=== PATIENT | female | born 1985 | race Caucasian/White ===

== ENCOUNTER 2017-12-16 11:02 | Emergency (ER) | payer OTHER ==
[~2017-12-16] VITALS: Ht 165.1 cm; Wt 81.8 kg
[~2017-12-16 11:02] MED LIST: IBUP1TAB7 PO; LISI-515 PO; NORG0.253 PO; PRAV10TA PO
[2017-12-16 11:03] VITALS: BP 132/64; PULSE 89; RESP 16; TEMP 99.1; O2SAT 97
--- NOTE | 2017-12-16 12:19 | PD ---
HPI Chief Complaint: Abdominal Pain Time Seen by Provider: 12:10 Travel History International Travel<30 days: No Contact w/Intl Traveler<30days: No Traveled to known affect area: No History of Present Illness HPI patient c/o 5 days of LLQ area pain, 04/19, nonradiating, becoming more and more constant where as before it was intermittent. patient went to urgent care which found her to have some hematuria and sent her here for further evaluation. patient denies any alleviating/aggravating factors.....denies any assoc factors such as fever,nausea,vomiting,diarrhea, cp/back pain/ PFSH Past Medical History Arthritis: Yes (JUVENILE RA ) High Cholesterol: Yes Hypertension: Yes Musculoskeletal: Yes (SCHOLIOSIS) Tetanus Vaccination: Unknown ?: Not LMP: 12/10/2017 : 3 Para: 0 : 2 Past Surgical History Section: Yes Other Surgery: Yes (c-sections) Social History Alcohol Use: No Tobacco Use: No Substance Use: No Allergies-Medications (Allergen,Severity, Reaction): Coded Allergies: cefaclor (Verified Allergy, Severe, 12/16/17) Reported Meds & Prescriptions Reported Meds & Active Scripts Active Pravastatin 10 Mg Tab 10 Mg PO DAILY Estarylla (Norgestimate-Ethinyl Estradiol) 0.25-35 Mg-Mcg Tab 1 Tab PO DAILY Lisinopril 20 Mg Tab 20 Mg PO DAILY Review of Systems General / Constitutional: No: Fever Eyes: No: Visual changes HENT: No: Headaches Cardiovascular: No: Chest Pain or Discomfort Respiratory: No: Shortness of Breath Gastrointestinal: No: Abdominal Pain Genitourinary: Positive: Flank Pain Musculoskeletal: No: Pain Skin: No Rash Neurologic: No: Weakness Psychiatric: No: Depression Endocrine: No: Polydipsia Hematologic/Lymphatic: No: Easy Bruising Physical Exam Narrative GENERAL: SKIN: Warm and dry. HEAD: Atraumatic. Normocephalic. EYES: Pupils equal and round. No scleral icterus. No injection or drainage. ENT: No nasal bleeding or discharge. Mucous membranes pink and moist. NECK: Trachea midline. No JVD. CARDIOVASCULAR: Regular rate and rhythm. RESPIRATORY: No accessory muscle use. Clear to auscultation. Breath sounds equal bilaterally. GASTROINTESTINAL: Abdomen soft, non-tender, nondistended. MUSCULOSKELETAL: Extremities without clubbing, cyanosis, or edema. No obvious deformities. NEUROLOGICAL: Awake and alert. No obvious cranial nerve deficits. Motor grossly within normal limits. Five out of 5 muscle strength in the arms and legs. Normal speech. PSYCHIATRIC: Appropriate mood and affect; insight and judgment normal. Data Data Last Documented VS Vital Signs Date Time Temp Pulse Resp B/P (MAP) Pulse Ox O2 Delivery O2 Flow Rate FiO2 12/16/17 11:03 99.1 89 16 132/64 (86) 97 Room Air Orders Orders Basic Metabolic Panel (Bmp) (12/16/17 11:15) Complete Blood Count With Diff (12/16/17 11:15) Urinalysis - C+S If Indicated (12/16/17 11:15) Ed Urine Pregnancytest Poc (12/16/17 11:15) Ct Abd/Pel W/O Iv Contrast (12/16/17 ) Labs Laboratory Tests Test 12/16/17 11:30 12/16/17 11:39 White Blood Count 11.0 TH/MM3 Red Blood Count 4.62 MIL/MM3 Hemoglobin 12.9 GM/DL Hematocrit 38.9 % Mean Corpuscular Volume 84.1 FL Mean Corpuscular Hemoglobin 28.0 PG Mean Corpuscular Hemoglobin Concent 33.3 % Red Cell Distribution Width 13.4 % Platelet Count 404 TH/MM3 Mean Platelet Volume 7.7 FL Neutrophils (%) (Auto) 62.8 % Lymphocytes (%) (Auto) 30.2 % Monocytes (%) (Auto) 4.5 % Eosinophils (%) (Auto) 2.1 % Basophils (%) (Auto) 0.4 % Neutrophils # (Auto) 6.9 TH/MM3 Lymphocytes # (Auto) 3.3 TH/MM3 Monocytes # (Auto) 0.5 TH/MM3 Eosinophils # (Auto) 0.2 TH/MM3 Basophils # (Auto) 0.0 TH/MM3 CBC Comment DIFF FINAL Differential Comment Blood Urea Nitrogen 18 MG/DL Creatinine 0.71 MG/DL Random Glucose 126 MG/DL Calcium Level 9.1 MG/DL Sodium Level 138 MEQ/L Potassium Level 3.9 MEQ/L Chloride Level 105 MEQ/L Carbon Dioxide Level 26.5 MEQ/L Anion Gap 7 MEQ/L Estimat Glomerular Filtration Rate 96 ML/MIN Urine Color YELLOW Urine Turbidity CLEAR Urine pH 6.5 Urine Specific [place] 1.023 Urine Protein NEG mg/dL Urine Glucose (UA) NEG mg/dL Urine Ketones NEG mg/dL Urine Occult Blood NEG Urine Nitrite NEG Urine Bilirubin NEG Urine Urobilinogen LESS THAN 2.0 MG/DL Urine Leukocyte Esterase NEG Urine RBC 2 /hpf Urine WBC 1 /hpf Urine Squamous Epithelial Cells 3 /hpf Urine Transitional Epithelial Cells <1 /hpf Urine Mucus FEW /lpf Microscopic Urinalysis Comment CULT NOT INDICATED MDM Medical Decision Making Medical Screen Exam Complete: Yes Emergency Medical Condition: Yes Medical Record Reviewed: Yes Differential Diagnosis DIVERTIC V COLITIS V OVARIAN CYST Narrative Course CBC, CMP AND COAG STUDIES WNL, CT ABD/PELVIS WERE NEG FOR COLITIS/DIVERTIC HOWEVER DID SHOW LEFT OVARIAN CYST Diagnosis Primary Impression: Ovarian cyst Qualified Codes: N83.202 - Unspecified ovarian cyst, left side Referrals: Linda Azevedo MD YOU MAY CALL THIS DOCTOR A CALCULATION REVIEWER OR YOUR OWN IF YOU HAVE A PRIVATE ONE FOR FOLLOWUP CARE Patient Instructions: General Instructions, Ovarian Cyst (ED) Scripts Ondansetron Odt (Zofran Odt) 4 Mg Tab 4 MG SL Q6HR Y for Nausea/Vomiting, #20 TAB 0 Refills Prov: Fransisco Shaffer MD 12/16/17 Tramadol (Ultram) 50 Mg Tab 50 MG PO Q6H Y for PAIN, #12 TAB 0 Refills Prov: Fransisco Shaffer MD 12/16/[address] (Naproxen EC) 375 Mg Tabdr 375 MG PO BID, #20 TAB 0 Refills Prov: Fransisco Shaffer MD 12/16/17 Disposition: 01 DISCHARGE HOME Condition: Stable Fransisco Shaffer MD Dec 16, 2017 12:19
[2017-12-16 12:20] LABS: BILIRUBIN, URINE NEG (NEG); BLOOD, URINE NEG (NEG); GLUCOSE,URINE NEG (NEG); KETONE, URINE NEG (NEG); MUCUS URINE FEW /lpf (OCC); NITRITE,URINE NEG (NEG); PH, URINE 6.5 (5.0-8.5); SQUAMOUS EPITHELIAL CELL URINE 3 /hpf (0-5); TRANSITIONAL EPI CELLS, URINE <1 /hpf; URINE COLOR YELLOW (YELLW/STRAW); URINE LEUKOCYTE ESTERASE NEG (NEG)
[2017-12-16 12:24] LABS: AUTOMATED NEUTROPHIL # 6.9 TH/MM3 (1.8-7.7); BASOPHIL % 0.4 % (0.0-2.0); EOSINOPHIL # 0.2 TH/MM3 (0-0.4); EOSINOPHIL % 2.1 % (0.0-4.0); HEMATOCRIT 38.9 % (35.0-46.0); HEMOGLOBIN 12.9 GM/DL (11.6-15.3); LYMPH % 30.2 % (9.0-44.0); LYMPHOCYTE # 3.3 TH/MM3 (1.0-4.8); MEAN CELL VOLUME 84.1 FL (80.0-100.0); MEAN CORPUSCULAR HGB CONC 33.3 % (32.0-36.0); MEAN PLATELET VOLUME 7.7 FL (7.0-11.0); MONO % 4.5 % (0.0-8.0); MONOCYTE # 0.5 TH/MM3 (0-0.9); NEUT % 62.8 % (16.0-70.0); PLATELET COUNT 404 TH/MM3 (150-450); RED BLOOD COUNT 4.62 MIL/MM3 (4.00-5.30); RED CELL DISTRIBUTION WIDTH 13.4 % (11.6-17.2)
[2017-12-16 12:32] LABS: BICARBONATE 26.5 MEQ/L (21.0-32.0); CALCIUM 9.1 MG/DL (8.5-10.1); CREATININE 0.71 MG/DL (0.50-1.00)
--- NOTE | 2017-12-16 14:13 | RADRPT ---
EXAM DATE/TIME: 12/16/2017 13:59 [facility] COMPARISON: No previous studies available for comparison. INDICATIONS : Left lower abdominal pain with hematuria. ORAL CONTRAST: No oral contrast ingested. RADIATION DOSE: 8.26 CTDIvol (mGy) MEDICAL HISTORY : Hypertension. SURGICAL HISTORY : None. ENCOUNTER: Initial ACUITY: 4 - 6 days PAIN SCALE: 4/10 LOCATION: Left lower quadrant TECHNIQUE: Volumetric scanning of the abdomen and pelvis was performed. Using automated exposure control and ad justment of the mA and/or kV according to patient size, radiation dose was kept as low as reasonably achievable to obtain optimal diagnostic quality images. DICOM format image data is available electro nically for review and comparison. FINDINGS: LOWER LUNGS: The visualized lower lungs are clear. LIVER: Homogeneous density without lesion. There is no dilation of the biliary tree. No calcified gallston es. SPLEEN: Normal size without lesion. PANCREAS: Within normal limits. KIDNEYS: Normal in size and shape. There is no mass, stone, or hydronephrosis. ADRENAL GLANDS: Within normal limits. VASCULAR: There is no aortic aneurysm. BOWEL/MESENTERY: The stomach, small bowel, and colon demonstrate no acute abnormality. There is no free intraperitone al air or fluid. ABDOMINAL WALL: Within normal limits. RETROPERITONEUM: There is no lymphadenopathy. BLADDER: No wall thickening or mass. REPRODUCTIVE: There is a 3.8 x 3.1 cm left adnexal cystic lesion. INGUINAL: There is no lymphadenopathy or hernia. MUSCULOSKELETAL: Mild scoliosis of the lumbar spine is noted. CONCLUSION: 1. No acute obstructive uropathy. 2. 3.8 x 3.1 cm left adnexal cystic lesion. 3. Mild scoliosis of the lumbar spine. Adrien Irving MD on December 16, 2017 at 14:08 Board Certified Radiologist. This report was verified electronically.
[2017-12-16] MEDS ORDERED: NAPR375T4 PO (15:28)
[2017-12-16] MEDS ORDERED: TRAM50 PO (15:28)
[2017-12-16] MEDS ORDERED: ZOFR4TAB3 SL (15:28)
== END 2017-12-16 16:07 | disposition home or self-care (01) ==
LOC: NEPD 11:02
DX: N83.202 Unspecified ovarian cyst, left side (principal); R31.9 Hematuria, unspecified; E78.00 Pure hypercholesterolemia, unspecified; I10 Essential (primary) hypertension
CPT/HCPCS: 74176; 80048; 81001; 84703; 85025; 99284